=== PATIENT | female | born 1970 | race Caucasian/White ===

== ENCOUNTER 2020-12-25 05:46 | Emergency (ER) | payer BC, OTHER ==
[2020-12-25 06:53] LABS: HEMOGLOBIN 14.9 gm/dl (12.3-15.3); RED BLOOD COUNT 4.55 M/UL (4.00-5.10); WHITE BLOOD COUNT 7.7 K/UL (4.5-11.0)
[2020-12-25 07:16] LABS: BUN/CREATININE RATIO 23 (0-10)
== END 2020-12-25 08:55 | disposition home or self-care (01) ==
LOC: ER1 05:46
PROVIDERS: Emergency Medicine
DX: R06.02 Shortness of breath (principal); I10 Essential (primary) hypertension; E03.9 Hypothyroidism, unspecified; Z20.822 Contact with and (suspected) exposure to COVID-19
CPT/HCPCS: 0240U; 36415; 80053; 83880; 84484; 85025; 85379; 93005; 99285; Q9967

== ENCOUNTER 2020-12-31 12:23 | Emergency (ER) | payer BC, OTHER ==
[2020-12-31 13:15] LABS: HEMOGLOBIN 14.4 gm/dl (12.3-15.3); RED BLOOD COUNT 4.44 M/UL (4.00-5.10); WHITE BLOOD COUNT 9.2 K/UL (4.5-11.0)
[2020-12-31 13:35] LABS: BUN/CREATININE RATIO 21 (0-10)
[2020-12-31] MEDS ORDERED: ZOFRAN ODT 4 MG4 MG SL (16:00)
== END 2020-12-31 16:08 | disposition home or self-care (01) ==
LOC: ER1 12:23
PROVIDERS: Physician Assistant
DX: R11.2 Nausea with vomiting, unspecified (principal); R51.9 Headache, unspecified; I51.9 Heart disease, unspecified
CPT/HCPCS: 70450; 80053; 85025; 96374; 99284; J1885; J7030

== ENCOUNTER 2021-10-06 13:36 | Emergency (ER) | payer BC, OTHER ==
[~2021-10-06] VITALS: Ht 172.7 cm; Wt 83.9 kg
[~2021-10-06 13:36] MED LIST: ZOFRAN ODT 4 MG4 MG SL
== END 2021-10-06 17:49 | disposition home or self-care (01) ==
LOC: ER1 13:36
DX: U07.1 COVID-19 (principal); Z23 Encounter for immunization
CPT/HCPCS: 99283; M0245